=== PATIENT | male | born 1995 | race Caucasian/White ===

== ENCOUNTER 2020-05-30 10:42 | Emergency (ER) | payer SELFPAY ==
--- NOTE | 2020-05-30 11:05 | ER Document Report ---
ED Medical Screen (RME) - General Chief Complaint: Possible Overdose Stated Complaint: POSSIBLE OVERDOSE Time Seen by Provider: 05/30/20 11:02 Primary Care Provider: ABDIRAHMAN HERNANDEZ [Primary Care Provider] - Follow up as needed Mode of Arrival: Medic Information source: Patient Notes: 25-year-old male presented to ED for heroin overdose. He was Narcan in route. He states he was not trying to harm himself he was just using his heroin and took too much. He states he does smoke a pack and a half a day drinks weekly and lives with his family. He is alert oriented respirations regular nonlabored at this time. He is concerned because he does not know why he overdosed. I have greeted and performed a rapid initial assessment of this patient. A comprehensive ED assessment and evaluation of the patient, analysis of test results and completion of medical decision making process will be conducted by an additional ED providers. Doctor's Discharge - Discharge Referrals: ABDIRAHMAN HERNANDEZ [Primary Care Provider] - Follow up as needed
[2020-05-30 11:19] LABS: ABSOLUTE BASOPHILS # (AUTO) 0.1 10^3/uL (0.0-0.2); ABSOLUTE EOSINOPHILS # (AUTO) 0.1 10^3/uL (0.0-0.6); ABSOLUTE LYMPHOCYTES (AUTO) 1.9 10^3/uL (0.5-4.7); ABSOLUTE MONOCYTES (AUTO) 0.9 10^3/uL (0.1-1.4); ABSOLUTE NEUT (AUTO) 8.9 10^3/uL (1.7-8.2); BASOPHILS % (AUTO) 0.5 % (0-2); EOSINOPHILS % (AUTO) 1.2 % (0-6); HEMATOCRIT 38.3 % (37.9-51.0); HEMOGLOBIN 13.6 g/dL (13.5-17.0); LYMPHOCYTES % (AUTO) 15.8 % (13-45); MEAN CORPUSCULAR HEMOGLOBIN 33.3 pg (27.0-33.4); MEAN CORPUSCULAR HGB CONC 35.6 g/dL (32.0-36.0); MEAN CORPUSCULAR VOLUME 94 fl (80-97); MONOCYTES % (AUTO) 7.5 % (3-13); PLATELET COUNT 296 10^3/uL (150-450); RED BLOOD COUNT 4.09 10^6/uL (4.35-5.55); RED CELL DISTRIBUTION WIDTH 12.7 % (11.5-14.0); TOTAL CELLS COUNTED % (AUTO) 100 %; WHITE BLOOD COUNT 11.8 10^3/uL (4.0-10.5)
[2020-05-30] MEDS ORDERED: NORMAL SALINE 1000 ML 1,000 ML IV ONE (11:44)
[2020-05-30 11:58] LABS: ALBUMIN 4.5 g/dL (3.5-5.0); ALKALINE PHOSPHATASE 59 U/L (38-126); ANION GAP 8 (5-19); ASPARTATE AMINO TRANSFERASE 37 U/L (17-59); BILIRUBIN,TOTAL 0.5 mg/dL (0.2-1.3); BLOOD UREA NITROGEN 18 mg/dL (7-20); CALCIUM 9.8 mg/dL (8.4-10.2); CARBON DIOXIDE 27 mmol/L (22-30); CHLORIDE 101 mmol/L (98-107); GLUCOSE 249 mg/dL (75-110); POTASSIUM 3.6 mmol/L (3.6-5.0); TOTAL PROTEIN 7.4 g/dL (6.3-8.2)
[2020-05-30 11:59] LABS: ACETAMINOPHEN < 10 ug/mL (10-30); ALCOHOL < 10 mg/dL (NONE DETECTED); SALICYLATE < 1.0 mg/dL (2.0-20.0)
--- NOTE | 2020-05-30 12:21 | ER Document Report ---
Entered by DARLYN CHAKRABORTY SCRIBE 05/30/20 1144 Acting as scribe for:RAMSEY ROGEL MD ED Substance Abuse / Acc. OD - General Chief Complaint: Possible Overdose Stated Complaint: POSSIBLE OVERDOSE Time Seen by Provider: 05/30/20 11:02 Primary Care Provider: ABDIRAHMAN HERNANDEZ [NO LOCAL MD] - Follow up as needed Mode of Arrival: Medic Information source: Patient Notes: This 25 year old male patient presents to the emergency department today after being resuscitated with 4 mg of Narcan secondary to a heroin overdose just prior to arrival. Patient reports that he has been using heroin off and on for the last 6 years and he has absolutely no interest in getting help with his addiction. Patient states that the last time overdosed was about a year ago in [facility]. Patient mentions that he was on a job site today when he overdosed. Patient works as an harvest worker fruit and he states that they were waiting for the asphalt to get there when he injected. - Related Data Allergies/Adverse Reactions: No Known Allergies Allergy (Unverified 05/30/20 11:25) Past Medical History - General Information source: Patient - Social History Smoking Status: Current Every Day Smoker Cigarette use (# per day): Yes - 1-2 ppd Chew tobacco use (# tins/day): No Smoking Education Provided: No Frequency of alcohol use: Social Drug Abuse: Heroin, Marijuana Occupation: harvest worker fruit Family History: Reviewed & Not Pertinent - Medical History Medical History: Negative Surgical Hx: Negative Review of Systems - Review of Systems Constitutional: See HPI, Other - heroin overdose EENT: No symptoms reported Cardiovascular: No symptoms reported Respiratory: No symptoms reported Gastrointestinal: No symptoms reported Genitourinary: No symptoms reported Male Genitourinary: No symptoms reported Musculoskeletal: No symptoms reported Skin: No symptoms reported Hematologic/Lymphatic: No symptoms reported Neurological/Psychological: No symptoms reported -: Yes All other systems reviewed and negative Physical Exam - Vital signs Vitals: Temp 98.2 F 05/30/20 10:43 - Notes Notes: Physical Exam: General: Alert, appears well. HEENT: Normocephalic. Atraumatic. PERRL. Extraocular movements intact. Awais pharynx clear. Neck: Supple. Non-tender. Respiratory: No respiratory distress. Clear and equal breath sounds bilaterally. Cardiovascular: Regular rate and rhythm. Abdominal: Normal Inspection. Non-tender. No distension. Normal Bowel Sounds. Back: No gross abnormalities. Extremities: Moves all four extremities. Upper extremities: Normal inspection. Normal ROM. Lower extremities: Normal inspection. No edema. Normal ROM. Neurological: Normal cognition. AAOx4. Normal speech. Psychological: Normal affect. Normal Mood. Skin: Track anand to bilateral ACs. Course - Vital Signs Vital signs: Temp Pulse Resp BP Pulse Ox 98.2 F 7 L 125/91 H 95 05/30/20 12:49 05/30/20 12:01 05/30/20 12:00 05/30/20 12:01 - Laboratory Result Diagrams: 05/30/20 11:03 05/30/20 11:03 Laboratory results interpreted by me: 05/30/20 05/30/20 11:03 11:03 WBC 11.8 H RBC 4.09 L Absolute Neuts (auto) 8.9 H Sodium 136.4 L Glucose 249 H Salicylates < 1.0 L Acetaminophen < 10 L Discharge - Discharge Clinical Impression: Heroin overdose Qualifiers: Encounter type: initial encounter Injury intent: accidental or unintentional Qualified Code(s): T40.1X1A - Poisoning by heroin, accidental (unintentional), initial encounter Condition: Stable Disposition: HOME, SELF-CARE Additional Instructions: Heroin Overdose: It appears that you overdosed on heroin today. You were successfully resuscitated with Narcan in the field. You should keep a dose of intranasal Narcan with you at all times if you plan to continue using heroin. Drink plenty of fluids today and get plenty of rest. Follow-up with the [facility] for help if you decide you would like to stop using heroin. RETURN TO THE EMERGENCY ROOM IF ANY NEW OR WORSENING SYMPTOMS. Referrals: LOCALMD,NO [NO LOCAL MD] - Follow up as needed I personally performed the services described in the documentation, reviewed and edited the documentation which was dictated to the scribe in my presence, and it accurately records my words and actions.
[2020-05-30 12:35] VITALS: BP 125/91
--- NOTE | 2020-05-30 13:13 | EKG REPORT ---
SEVERITY:- NORMAL ECG - SINUS RHYTHM : Confirmed by: Brayden Meredith MD 30-May-2020 13:12:31
== END 2020-05-30 12:51 | disposition home or self-care (01) ==
LOC: ER 10:42
DX: T40.1X1A Poisoning by heroin, accidental (unintentional), initial encounter (principal); F17.210 Nicotine dependence, cigarettes, uncomplicated
CPT/HCPCS: 93005; 99284; 96360; 36415; 80307 ×3; 82550; 85025; 80053; 84484; 93010; J7030